=== PATIENT | female | born 1985 | race Hispanic/Latino ===

== ENCOUNTER 2017-11-29 17:26 | Emergency (ER) | payer OTHER, SELFPAY ==
--- NOTE | 2017-11-29 20:37 | ER ---
Nurse's Notes [facility] Name: Carie Sanchez Age: 32 yrs Sex: Female : 1985 Arrival Date: 11/29/2017 Time: 17:35 Bed 11 Private MD: Cristino Oliver Diagnosis: Acute pharyngitis, unspecified Presentation: 11/29 17:54 Presenting complaint: Patient states: sore throat that started 3 days ago; fever and hj chills; temp last night 102; reports headache;. Transition of care: patient was not received from another setting of care. Onset of symptoms was November 29, 2017. Care prior to arrival: None. 17:54 Method Of Arrival: Ambulatory 17:54 Acuity: WENDY 4 hj Triage Assessment: 17:55 General: Appears in no apparent distress. uncomfortable, Behavior is calm, cooperative, hj appropriate for age. Pain: Complains of pain in throat. EENT: Reports pain when swallowing. 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 - Social history:: Smoking status: Patient/guardian denies using tobacco. Screenin:44 Abuse screen: Denies threats or abuse. Denies injuries from another. Nutritional aj1 screening: No deficits noted. Tuberculosis screening: No symptoms or risk factors identified. Fall Risk None identified. Assessment: 17:55 Respiratory: Airway is patent Respiratory effort is even, unlabored, Respiratory hj pattern is regular, symmetrical, Breath sounds are clear. EENT: Throat. 19:44 General: Appears in no apparent distress. uncomfortable, Behavior is calm, cooperative. aj1 Pain: Complains of pain in left aspect of posterior pharynx and right aspect of posterior pharynx. Neuro: Level of Consciousness is awake, alert, obeys commands, Speech is normal, Facial symmetry appears normal. Cardiovascular: Patient's skin is warm and dry. Respiratory: Reports cough that is non-productive, persistent Airway is patent Respiratory effort is even, unlabored, Respiratory pattern is regular, symmetrical, Breath sounds are clear bilaterally. Denies shortness of breath. GI: No signs and/or symptoms were reported involving the gastrointestinal system. : No signs and/or symptoms were reported regarding the genitourinary system. EENT: Throat is reddened bilaterally Reports sore throat, sinus pressure. Denies nasal congestion, nasal discharge. Derm: No signs and/or symptoms reported regarding the dermatologic system. Skin is pink, warm \T\ dry. normal. Musculoskeletal: No signs and/or symptoms reported regarding the musculoskeletal system. Circulation, motion, and sensation intact. 21:00 Reassessment: Patient appears in no apparent distress at this time. No changes from aj1 previously documented assessment. Patient and/or family updated on plan of care and expected duration. Pain level reassessed. Patient is alert, oriented x 3, equal unlabored respirations, skin warm/dry/pink. Vital Signs: 17:56 BP 111 / 75; Pulse 81; Resp 18; Temp 97.0(TE); Pulse Ox 100% on R/A; Weight 72.57 kg; Height 5 ft. 1 in. (154.94 cm); Pain 8/10; 19:44 BP 124 / 75; Pulse 87; Resp 18; Pulse Ox 100% on R/A; aj1 21:01 BP 110 / 75; Pulse 73; Resp 18; Pulse Ox 100% ; aj1 17:56 Body Mass Index 30.23 (72.57 kg, 154.94 cm) ED Course: 17:35 Patient arrived in ED. rg4 17:36 Cristino Oliver DO is Private Physician. rg4 17:54 Triage completed. hj 17:55 Arm band placed on right wrist. hj 19:31 Milagro Wilson, RN is Primary Nurse. aj1 19:38 Kurtis Roldan MD is Attending Physician. tw4 19:44 Patient has correct armband on for positive identification. Call light in reach. aj1 19:44 No provider procedures requiring assistance completed. Flu and/or RSV swab sent to lab. aj1 Strep swab sent to lab. 20:35 Cristino Oliver DO is Referral Physician. tw4 21:01 Patient did not have IV access during this emergency room visit. aj1 Administered Medications: No medications were administered Outcome: 20:36 Discharge ordered by . tw4 21:01 Discharged to home ambulatory. aj1 21:01 Condition: good 21:01 Discharge instructions given to patient, Instructed on discharge instructions, follow up and referral plans. medication usage, Take Tylenol while breast feeding, if unable to tolerate pain pump and dump breast milk after taking Motrin 21:02 Patient left the ED. aj1 Signatures: Milagro Wilson RN RN aj1 Suresh Lima RN RN hj Garcia, Rubi rg4 Kurtis Roldan MD MD tw4 Corrections: (The following items were deleted from the chart) 17:57 17:56 Pulse 81bpm; Resp 18bpm; Pulse Ox 100% RA; Temp 97.0F Temporal; 72.57 kg; Height hj 5 ft. 1 in.; BMI: 30.2; Pain 8/10; hj
--- NOTE | 2017-11-29 20:37 | EDPHYS ---
Physician Documentation [facility] Name: Carie Sanchez Age: 32 yrs Sex: Female : 1985 Arrival Date: 11/29/2017 Time: 17:35 Bed 11 Private MD: Lane Oliverh ED Physician Kurtis Roldan HPI: 11/29 20:33 This 32 yrs old Female presents to ER via Ambulatory with complaints of Sore tw4 Throat, Headache, Fever, Nausea. 20:33 The patient presents with sore throat. The patient describes throat pain as dry. Onset: tw4 The symptoms/episode began/occurred yesterday. Severity of symptoms: At their worst the symptoms were moderate, in the emergency department the symptoms are unchanged. Modifying factors: The symptoms are alleviated by nothing, the symptoms are aggravated by nothing. Associated signs and symptoms: Pertinent positives: flu-like symptoms, arthralgias. The patient has not experienced similar symptoms in the past. 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 - Social history:: Smoking status: Patient/guardian denies using tobacco. ROS: 20:33 Constitutional: Negative for fever, chills, and weight loss, Cardiovascular: Negative tw4 for chest pain, palpitations, and edema, Respiratory: Negative for shortness of breath, cough, wheezing, and pleuritic chest pain, Abdomen/GI: Negative for abdominal pain, nausea, vomiting, diarrhea, and constipation. 20:33 ENT: Positive for sore throat. Exam: 20:33 Constitutional: This is a well developed, well nourished patient who is awake, alert, tw4 and in no acute distress. Head/Face: Normocephalic, atraumatic. Chest/axilla: Normal chest wall appearance and motion. Nontender with no deformity. No lesions are appreciated. Cardiovascular: Regular rate and rhythm with a normal S1 and S2. No gallops, murmurs, or rubs. Normal PMI, no JVD. No pulse deficits. Respiratory: Lungs have equal breath sounds bilaterally, clear to auscultation and percussion. No rales, rhonchi or wheezes noted. No increased work of breathing, no retractions or nasal flaring. 20:33 ENT: External ear(s): are unremarkable, Ear canal(s): are normal, TM's: are normal, Posterior pharynx: erythema, that is mild. Vital Signs: 17:56 BP 111 / 75; Pulse 81; Resp 18; Temp 97.0(TE); Pulse Ox 100% on R/A; Weight 72.57 kg; hj Height 5 ft. 1 in. (154.94 cm); Pain 8/10; 19:44 BP 124 / 75; Pulse 87; Resp 18; Pulse Ox 100% on R/A; aj1 21:01 BP 110 / 75; Pulse 73; Resp 18; Pulse Ox 100% ; aj1 17:56 Body Mass Index 30.23 (72.57 kg, 154.94 cm) hj MDM: 19:38 Patient medically screened. tw4 20:33 Differential diagnosis: bronchitis, group A strep tonsillitis, pharyngitis, tw4 tonsillitis, uvulitis, viral syndrome. Data reviewed: vital signs, nurses notes. Counseling: I had a detailed discussion with the patient and/or guardian regarding: the historical points, exam findings, and any diagnostic results supporting the discharge/admit diagnosis. Special discussion: I discussed with the patient/guardian in detail that at this point there is no indication for admission to the hospital. It is understood, however, that if the symptoms persist or worsen the patient needs to return immediately for re-evaluation. 11/29 19:10 Order name: Flu; Complete Time: 20:25 tw4 11/29 19:10 Order name: Strep; Complete Time: 20:25 tw4 11/29 20:21 Order name: Throat Culture EDMS Administered Medications: No medications were administered Disposition: 11/29/17 20:36 Discharged to Home. Impression: Acute pharyngitis, unspecified. - Condition is Stable. - Discharge Instructions: Pharyngitis, Strep Throat, Upper Respiratory Infection, Adult, Strep Throat, [id number], Upper Respiratory Infection, Adult, [id number]. - Prescriptions for Ibuprofen 800 mg Oral Tablet - take 1 tablet by ORAL route every 8 hours As needed take with food; 30 tablet. - Medication Reconciliation Form, Thank You Letter, Antibiotic Education, Prescription Opioid Use form. - Follow up: Cristino Oliver, DO; When: As needed; Reason: If symptoms return, Recheck today's complaints, Continuance of care, Re-evaluation by your physician. - Problem is new. - Symptoms are unchanged. Signatures: Dispatcher [employer] Milagro Gonzalez RN RN aj1 Suresh Lima RN RN hj Kurtis Roldan MD MD tw4
[2017-11-29 21:18] VITALS: TEMP 97; O2SAT 100
[2017-11-29 21:20] VITALS: BP 110/75
== END 2017-11-29 21:02 | disposition home or self-care (01) ==
LOC: ER 17:26
DX: J02.9 Acute pharyngitis, unspecified (principal)
CPT/HCPCS: 87070; 87081; 87804; 99283